=== PATIENT | female | born 1990 | race Caucasian/White ===

== ENCOUNTER → 2024-09-16 | Emergency (ER) | payer OTHER ==
[~2024-09-16] VITALS: Ht 157.5 cm; Wt 73.9 kg
[~2024-09-16] MED LIST: CLOT12CR TP; FLUC200T PO; FLUCONAZOLE 100 MG TABLET ONE
[2024-09-16] MEDS: FLUCONAZOLE 100 MG TABLET PO ONE (20:23)
[2024-09-16 20:30] VITALS: BP 148/72; O2SAT 99
== END | disposition home or self-care (01) ==
LOC: ER 16:52
DX: B36.9 Superficial mycosis, unspecified (principal); E78.5 Hyperlipidemia, unspecified
CPT/HCPCS: A4606; A4663